=== PATIENT | male | born 1995 | race Caucasian/White ===

== ENCOUNTER 2024-08-30 09:47 | Emergency (ER) | payer SELFPAY ==
[2024-08-30 09:54] VITALS: BP 156/89; PULSE 78; TEMP 36.8; O2SAT 99; BMI 20.5
[2024-08-30 10:37] LABS: Basophils Percent Auto 0.3 % (0.2-2.0); Eosinophils Percent Auto 0.2 % (0.9-7.0); Hematocrit 42.3 % (42.0-54.0); Hemoglobin 14.9 g/dL (14.0-18.0); Immature Granulocytes Abs Auto 0.02 10^3/uL (0.00-0.03); Immature Granulocytes Pct Auto 0.2 % (0.0-0.5); Lymphocytes Absolute Auto 1.7 10^3/uL (1.2-3.8); Lymphocytes Percent Auto 15.4 % (20.5-60.0); Mean Corpuscular HGB Conc 35.2 g/dL (29.9-35.2); Mean Corpuscular Hemoglobin 32.3 pg (25.9-34.0); Mean Corpuscular Volume 91.8 fL (80.0-94.0); Mean Platelet Volume 11.1 fL (9.5-13.5); Monocytes Percent Auto 9.2 % (1.7-12.0); Neutrophils Absolute Auto 8.3 10^3/uL (1.4-6.5); Neutrophils Percent Auto 74.7 % (43.0-75.0); Platelet Count 204 10^3/uL (150-450); Red Blood Count 4.61 10^6/uL (4.70-6.10); Red Cell Distribution Width 12.1 % (11.0-15.0); White Blood Count 11.1 10^3/uL (4.0-11.0)
[2024-08-30 10:45] LABS: Anion Gap 9.1; BUN Creatinine Ratio 14.8; Calcium 9.4 mg/dL (8.5-10.1); Carbon Dioxide 29.7 mmol/L (21.0-32.0); Chloride 100 mmol/L (98-107); Estimated GFR (African America >60 (>=60 mL/min/1.73m^2); Estimated GFR (Non-African Ame >60 (>=60 mL/min/1.73m^2); Glucose 121 mg/dL (74-106); Potassium 3.8 mmol/L (3.5-5.1); Sodium 135 mmol/L (136-145)
--- NOTE | 2024-08-30 10:46 | ED.GENADUL1 ---
HPI HPI - General Adult General Chief complaint: Skin/Abscess/Foreign Body Stated complaint: LOWER EXTERMITY PAIN Time Seen by Provider: 08/30/24 10:06 Source: patient Mode of arrival: walk-in Limitations: no limitations History of Present Illness HPI narrative: 29-year-old male presents to the emergency department for swollen area near his anus. He has had it for 3 to 4 days and there has been no bleeding or drainage. He thought it might be a hemorrhoid and he has been sitting in warm bath water. He receives anal intercourse. He has never had anything like this before. Related Data Home Medications ?Medication ?Instructions ?Recorded ?Confirmed No Known Home Medications 08/30/24 08/30/24 Allergies Allergy/AdvReac Type Severity Reaction Status Date / Time No Known Drug Allergies Allergy Verified 08/30/24 09:53 Review of Systems ROS Narrative A ten point review of systems is negative except as noted above. PFSH PFSH Social History Little interest or pleasure in doing things: not at all Feeling down, depressed, or hopeless: not at all Exam Narrative Exam Narrative: Nurses note and vital signs reviewed and patient is not hypoxic. General: The patient appears well and in no apparent distress. Patient is resting comfortably on cart. Skin: Warm, dry, no pallor noted. There is no rash noted. Head: Normocephalic, atraumatic Eye: Normal conjunctiva, no drainage Ears, Nose, Mouth, and Throat: oral mucosa is moist. Nares patent. Cardiovascular: Regular Rate and Rhythm Respiratory: Patient is in no distress, no accessory muscle use, lungs are clear to auscultation, no wheezing, rales or rhonchi Back: non-tender, no CVA tenderness bilaterally to percussion. GI: Soft and nontender; to the right of an anus is a swollen tender slightly fluctuant area that is slightly raised. There is no open area or drainage. Musculoskeletal: The patient has no evidence of calf tenderness, no pitting edema, symmetrical pulses noted bilaterally Neurological: A&O, normal speech Psychiatric: Cooperative Constitutional Vital Signs, click to edit/add: Last Vital Signs Temp 98.2 F 08/30/24 09:54 Pulse 78 08/30/24 09:54 Resp 18 08/30/24 09:54 BP 156/89 H 08/30/24 09:54 Pulse Ox 99 08/30/24 09:54 O2 Del Method Room Air 08/30/24 09:54 Course Vital Signs Vital signs: Vital Signs Temperature 98.2 F 08/30/24 09:54 Pulse Rate 78 08/30/24 09:54 Respiratory Rate 18 08/30/24 09:54 Blood Pressure 156/89 H 08/30/24 09:54 Pulse Oximetry 99 08/30/24 09:54 Oxygen Delivery Method Room Air 08/30/24 09:54 Temperature 98.2 F 08/30/24 09:54 Pulse Rate 78 08/30/24 09:54 Respiratory Rate 18 08/30/24 09:54 Blood Pressure 156/89 H 08/30/24 09:54 Pulse Oximetry 99 08/30/24 09:54 Oxygen Delivery Method Room Air 08/30/24 09:54 Medical Decision Making MDM Narrative Medical decision making narrative: His workup indicates a large perirectal abscess. He was given IV Zosyn. I spoke to Dr. Villalpando at [facility] and the patient is excepted there. He is stable and agreeable for transfer. Treatment diagnosis and disposition were discussed with the patient. Differential Diagnosis Differential Diagnosis: Abscess, hemorrhoid, cellulitis Lab Data Lab results reviewed: Yes I reviewed the patient's lab results Labs: Lab Results 08/30/24 Range/Units 10:24 WBC 11.1 H (4.0-11.0) 10^3/uL RBC 4.61 L (4.70-6.10) 10^6/uL Hgb 14.9 (14.0-18.0) g/dL Hct 42.3 (42.0-54.0) % MCV 91.8 (80.0-94.0) fL MCH 32.3 (25.9-34.0) pg MCHC 35.2 (29.9-35.2) g/dL RDW 12.1 (11.0-15.0) % Plt Count 204 (150-450) 10^3/uL MPV 11.1 (9.5-13.5) fL Neut % (Auto) 74.7 (43.0-75.0) % Lymph % (Auto) 15.4 L (20.5-60.0) % York % (Auto) 9.2 (1.7-12.0) % Eos % (Auto) 0.2 L (0.9-7.0) % Baso % (Auto) 0.3 (0.2-2.0) % Neut # (Auto) 8.3 H (1.4-6.5) 10^3/uL Lymph # (Auto) 1.7 (1.2-3.8) 10^3/uL York # (Auto) 1.0 H (0.3-0.8) 10^3/uL Eos # (Auto) 0.0 (0.0-0.7) 10^3/uL Baso # (Auto) 0.0 (0.0-0.1) 10^3/uL Abs Immat Gran (auto) 0.02 (0.00-0.03) 10^3/uL Imm/Tot Granulo (auto) 0.2 (0.0-0.5) % Sodium 135 L (136-145) mmol/L Potassium 3.8 (3.5-5.1) mmol/L Chloride 100 (98-107) mmol/L Carbon Dioxide 29.7 (21.0-32.0) mmol/L Anion Gap 9.1 BUN 13.0 (7.0-18.0) mg/dL Creatinine 0.88 (0.70-1.30) mg/dL Est GFR ( Amer) >60 (>=60 mL/min/1.73m^2) Est GFR (Non-Af Amer) >60 (>=60 mL/min/1.73m^2) BUN/Creatinine Ratio 14.8 Glucose 121 H (74-106) mg/dL Calcium 9.4 (8.5-10.1) mg/dL Imaging Data CT pelvis: Radiologist's impression: Large perirectal abscess, maximum dimension 5 cm Discharge Plan Discharge Chief Complaint: Skin/Abscess/Foreign Body Clinical Impression: Abscess, perirectal Patient Disposition: [facility] Time of Disposition Decision: 15:24 Discharge Location: [facility] Condition: Fair Mode of Transportation: EMS
--- NOTE | 2024-08-30 13:44 | PC.NURSE ---
pt updated on plan of care, he is now NPO,
[2024-08-30] MEDS: PIPERACILLIN SODIUM/TAZOBACTAM 3.375 GM in 0.9 % SODIUM CHLORIDE 50 ML IV (14:00)
== END 2024-08-30 15:35 | disposition short-term general hospital (02) ==
PROVIDERS: Emergency Provider Emergency Medicine
DX: K61.1 Rectal abscess (principal)
CPT/HCPCS: 36415; 72193; 80048; 85025; 96365; 99285; J2543; Q9967